=== PATIENT | male | born 1950 | race Caucasian/White ===

== ENCOUNTER → 2018-03-29 | Outpatient (CLI) | payer BC ==
[~2018-03-29] VITALS: Ht 170.2 cm; Wt 77.4 kg
[~2018-03-29] MED LIST: ACYCLOVIR 200200 MG PO; ATORVASTATIN CA40 MG PO; BISOPROLOL FUMAR5 M1 PO; DICLOFENAC SODI75 MG PO; DONNATAL TABL16.2 MG PO; HYDROCODON-ACE1 EAC7 PO
--- NOTE | ~2018-03-29 | HPC ---
[facility] [place] [address] PAIN MANAGEMENT CONSULTATION Name: CAIT AYERS [facility] #: [facility] [id number] Admission: 03/29/18 Attend Phys: Amos Pathak MD Discharge: Date of : 48 Report #: [id number] THIS REPORT FOR: //name// CC: Say Pathak DATE OF SERVICE: 03/29/2018 Followup visit for chronic low back pain with radiation along the right iliac crest. The patient returns to the pain clinic today with his . We had about a 25-30 minute consultation regarding his pain. He had an epidural injection at this clinic performed to the level of lumbar 4-5. The procedure provided substantial relief for nearly 1 month and then the pain returned to the baseline. Here today to discuss further options. He reports that when his pain was gone and it was, he was able to do most of his day-to-day activities including prolonged sitting, playing golf without too much discomfort. When the pain returned, it followed a typical pattern. Generally not bad in the morning, progressively worse later in the day or after playing golf and by evening time the pain is so severe that it limits his evening activities. He has trouble getting relief at that time of the day. Pain is almost exclusively in the back with some radiation around the iliac crest. It does not go into the leg and he does not describe any numbness, tingling or weakness. He has had no trials of stronger pain medication for this condition. He does have some hydrocodone remaining in his medicine cabinet at home from a previous surgery. We spent some time today reviewing once again his MRI from 12/29/2017. This presents multiple potential pain generators with degenerative disk disease throughout the lumbar spine and multiple bilateral facet degenerative changes severe in the mid and lower spine. There are persistent foraminal narrowings as well most severe on the right at L2-L3, L3-L4 and L4-L5 and left at L5-S1. Central canal narrowing is most prominent at L3-L4 and L4-L5. His response to the epidural with such a nice duration suggests that there may be some neural foraminal involvement. This could be affecting the nerve root and the long response of 30 days due to an anti-inflammatory response of the nerve roots involved. I did give him a fairly large volume of medications, so I do not think this was diagnostic necessarily for any one of the multiple levels documented on his MRI. 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 We discussed medications at some length, injections epidural versus facet, facet treatments including radiofrequency ablation, which I did not favor at this time, spinal cord stimulation, which is more helpful for those with classic radicular symptoms, intrathecal pump, which is certainly down the line and surgery. Surgery would be more complicated again because it is difficult to focus on his pain generator. I think there is a role for medication particularly since he does pretty well throughout the day. He might benefit from a mild opioid in addition to his nonsteroidal anti-inflammatory drug. We have many patients who have done this for a decade and a half avoiding surgery or other more aggressive treatments. We discussed the pros and cons of a mild opioid such as hydrocodone as an initial treatment. He has agreed to a small prescription as a trial. I told him I would share this information with Dr. Collins. He would like another epidural injection based upon his favorable response. This is one of the best and most long lasting of injection he has had. After further exam today, I elected to proceed with an injection at the lumbar 2-3 level. This may be more consistent with his radiating pattern of pain. PHYSICAL EXAMINATION: A pleasant 68-year-old moves easily from sitting to standing position without any difficulty. He has no alterations to his gait. His blood pressure 115/62, heart rate 51, respirations 14. His lumbar spine range of motion is actually normal in all planes. He has no increased pain with back extension to suggest the set mechanisms. The straight leg raising is negative. Sensation is normal. Deep tendon reflexes are normal. Strength is normal. He has some pain with lateral tilt that radiates along the right side of the low back across the iliac crest, but no further. There are no palpable abnormalities. It is nontender. IMPRESSION: Degenerative spine disease with possible radicular symptoms, L2-L3. RECOMMENDATIONS: 1. Repeat epidural injection a bit higher today, L2-L3 under fluoroscopic guidance. 2. A trial prescription for hydrocodone 5/325, to be taken in the evening when his pain is most severe. Side effects reviewed. An extensive discussion regarding the use of opioids. PROCEDURE: The patient was placed in the fluoroscopic suite, placed prone, skin prepped with ChloraPrep. Skin anesthetized over the L2-L3 interspace to the right of midline. A 20-gauge Tuohy epidural needle advanced first attempt to the epidural space with loss of resistance technique. There was no blood or CSF aspirated. 1 mL of Omnipaque was injected. Good spread of dye was observed in the epidural space, was followed by 3 mL of 0.5% lidocaine mixed with 80 mg of [facility] [address] [place] [address] PAIN MANAGEMENT CONSULTATION Name: ANDRIACAIT Palmer Room #: [facility].#: [id number] Admission: 03/29/18 Attend Phys: Amos Pathak MD Discharge: Date of : 48 Report #: [id number] triamcinolone. He tolerated the procedure well and was observed for 45 minutes and discharged. We will follow up in another month or two. Communication made today with Dr. Collins regarding treatment. By: [id number] Amos Pathak MD /nt
[2018-03-29 09:20] VITALS: BP 115/62
== END | disposition home or self-care (01) ==
LOC: PAIN 08:03
DX: M51.16 Intervertebral disc disorders with radiculopathy, lumbar region (principal); G89.29 Other chronic pain; Z79.891 Long term (current) use of opiate analgesic; Z88.8 Allergy status to other drugs, medicaments and biological substances; Z79.899 Other long term (current) drug therapy; Z98.890 Other specified postprocedural states

== ENCOUNTER → 2018-09-28 | Outpatient (CLI) | payer BC ==
[~2018-09-28] VITALS: Ht 170.2 cm; Wt 72.9 kg
[~2018-09-28] MED LIST changes: +ALTACE10 MG PO; +ASPIR 8181 MG PO; +HYOSCYAMINE0.375 M1 PO; +PROTONIX 20 MG20 M1 PO; +TRAMADOL 50 MG50 MG PO
--- NOTE | ~2018-09-28 | HPC ---
[facility] [place] [address] [address] PAIN MANAGEMENT CONSULTATION Name: CAIT AYERS Room #: REG CL Jose R.#: [id number] Admission: 09/28/18 ������������������ Attend Phys: Amos Pathak MD Discharge: ������������������ Date of : 48 Report #: [id number] THIS REPORT FOR: //name// CC: Say Dasilva MD DATE OF SERVICE: 09/28/2018 Followup visit for chronic low back pain, lumbar spondylosis and mild radiculopathy into the right hip. The patient returns to the pain clinic today for a 25-minute consultation regarding medication, followed by a lumbar epidural steroid injection. He presented to me today with information that shows that his renal function is declining. His glomerular filtration rate is now around 55. I believe this has happened gradually and over the course of time he has taken diclofenac 75 mg b.i.d. If this is truly related to his nonsteroidal anti-inflammatory drugs, discontinuing the drug may allow for improvement and there may be some reversibility. Prior to the diclofenac, he was on meloxicam and then nabumetone, so it has been one anti-inflammatory, another for a number of years dating back at least to 2016 in our records. His lumbar x-rays were reviewed today. He has retrolisthesis grade 1 of L2 on L3, L3 on L4 and grade 1 anterolisthesis of L4 on L5. There are multiple levels of facet degenerative changes as well as multiple levels of neural foraminal narrowing; encroachment of the nerve roots at each level is noted. There is some central canal stenosis as well noted at L3-L4. We reviewed the epidural injections that have been provided in our clinic. Dr. Jamison previously had been injecting him at L4-L5. Due to the diffuse nature of his pain and also the more significant degenerative changes, I elected to perform his last injection at lumbar 2, lumbar 3. He reported this provided substantially more pain relief. PHYSICAL EXAMINATION: He is a pleasant 68-year-old gentleman. Blood pressure 123/77, heart rate 58, respirations 16. He is fit and slender. BMI of 25.2. Moves easily from standing position, ambulates without too much difficulty. Lumbar range of motion is quite good in flexion, extension and rotation. He does have some increased back pain with back extension. Straight leg raising is negative other than some radiation into the hips. IMPRESSION: Chronic low back pain with spondylosis; retrolisthesis of L2 on L3, L3 on L4; anterolisthesis of L4 on L5 with spinal stenosis at L3-L4 and L4-L5, multilevel neural foraminal stenosis L2-L3 [place] [address] PAIN MANAGEMENT CONSULTATION Name: CAIT AYERS Room #: LILLIANA Hernandez#: [id number] Admission: 09/28/18 ������������������ Attend Phys: Amos Pathak MD Discharge: ������������������ Date of : 48 Report #: [id number] PROCEDURE: Epidural steroid injection, L2-L3 under fluoroscopic guidance. He was taken to fluoroscopic suite, placed prone, skin prepped with ChloraPrep. Skin anesthetized over the L2-L3 interspace. A 20-gauge Tuohy epidural needle advanced at first attempt into the epidural space with loss of resistance technique. No blood nor CSF was aspirated. A 1 mL of Omnipaque injected. Good spread of dye observed. This was followed by 3 mL of 0.5% lidocaine mixed with 80 mg triamcinolone. He tolerated the procedure well. Pain score was 0 in recovery room and he was discharged. Prior to discharge, we had a lengthy discussion about this, the importance of discontinuing the diclofenac altogether. To provide some breakthrough pain medication, I provided him with two trial prescriptions, one for [place] 5/325, #30 tablets 1 to be taken q. 8 hours as needed for severe pain and tramadol 50 mg, #30, 1 q. 8 hours as needed as well. I gave instructions on how these medications could be trialed independently to determine efficacy onset, duration of response and to monitor closely for side effects. We discussed constipation is most likely side effect. We did discuss the opioid crisis and the use of opioids and the treatment of intractable pain. Multiple questions were asked and answered. Phone call was placed to Dr. Collins to let him know that we had taken this approach. Followup visit planned in 1-2 months or by phone for further prescriptions. ��������������������������������������������� ���������������������������������������� By: ��������������������������������������������� [id number] Amos Pathak MD /nt
[2018-09-28 11:34] VITALS: BP 123/77
--- NOTE | 2018-09-28 11:36 | NUR ---
Pain Clinic Assessment: 1. History of Osteoarthritis: BACK History of Rheumatoid Arthritis: NO 2. Height: 5 ft. 7 in. 170.2 cm. Weight: 160.8 lb. oz. 72.938 kg. Patient's BMI: 25.2 3. Vital Signs: BP: 123/77 Pulse: 58 Resp: 16 Temp: 02 Sat: 98 ECG Mon: 4. Pain Intensity: 10 5. Fall Risk: Dizziness: N Needs help standing or walking: N Fallen in the last 3 months: N Fall risk comments: 6. Patient on Blood Thinner: None 7. History of Hypertension: Y 8. Opioid Therapy greater than 6 weeks: N Opiate Contract Signed: 9. Risk Assessment Tool Provided: 10. Functional Assessment Tool: 11. Recreational Drug Use: Never Drug Type: Tobacco Use: Never Smoker Tobacco Type: Amount or Packs/day: How Many Years: Alcohol Use: Yes Frequency: Quant:
== END | disposition home or self-care (01) ==
LOC: PAIN 07:09
DX: M47.26 Other spondylosis with radiculopathy, lumbar region (principal); M43.16 Spondylolisthesis, lumbar region; M48.061 Spinal stenosis, lumbar region without neurogenic claudication; G89.29 Other chronic pain; Z88.8 Allergy status to other drugs, medicaments and biological substances; Z79.82 Long term (current) use of aspirin; Z79.891 Long term (current) use of opiate analgesic; Z98.890 Other specified postprocedural states

== ENCOUNTER → 2018-10-28 | Outpatient (CLI) | payer BC ==
[~2018-10-28] VITALS: Ht 170.2 cm; Wt 69.9 kg
[2018-10-28 09:25] VITALS: BP 113/70
--- NOTE | 2018-10-28 09:50 | NUR ---
Pain Clinic Assessment: 1. History of Osteoarthritis: BACK History of Rheumatoid Arthritis: NO 2. Height: 5 ft. 7 in. 170.2 cm. Weight: 154.0 lb. oz. 69.854 kg. Patient's BMI: 24.1 3. Vital Signs: BP: 113/70 Pulse: 68 Resp: 14 Temp: 02 Sat: 97 ECG Mon: 4. Pain Intensity: 0 NOW 8 YESTERDAY 5. Fall Risk: Dizziness: N Needs help standing or walking: N Fallen in the last 3 months: N Fall risk comments: 6. Patient on Blood Thinner: None 7. History of Hypertension: Y 8. Opioid Therapy greater than 6 weeks: N Opiate Contract Signed: 9. Risk Assessment Tool Provided: 10. Functional Assessment Tool: 11. Recreational Drug Use: Never Drug Type: Tobacco Use: Never Smoker Tobacco Type: Amount or Packs/day: How Many Years: Alcohol Use: Yes Frequency: Quant:
--- NOTE | 2018-11-01 18:13 | HPC ---
[facility] [address] [address] [place] [address] PAIN MANAGEMENT CONSULTATION Name: CAIT AYERS [facility] #: [facility] [id number] Admission: 10/28/18 ������������������ Attend Phys: Amos Pathak MD Discharge: ������������������ Date of : 48 Report #: [id number] THIS REPORT FOR: //name// CC: Say Pathak DATE OF SERVICE: 10/28/2018 Followup visit for chronic low back pain, lumbar spondylosis with mild radiculopathy. Anterolisthesis of L4 on L5, retrolisthesis of L2 on L3 and L3 on L4. Spinal stenosis, multilevel. The patient returns to the pain clinic today. His epidural injections have provided relief, but only for short term. His pain, however, seems less radicular than it has been described in the past. Most of his pain radiates into the right flank and above the iliac crest, not so much into the hip. Pain is in the costovertebral angle, locally tender. He has remained fairly active, but walking seems to be his biggest problem. His pain is exacerbated by golf and seems to be worse late in the day after he has been up. PHYSICAL EXAMINATION: GENERAL: Today, he is pleasant, loquacious. VITAL SIGNS: Blood pressure is 113/70, heart rate 68, height 5 feet 7 inches, weight 154 with a BMI of 24.1. It should be noted that he has lost around 20 pounds over the course of the last year as a result of dietary changes. MUSCULOSKELETAL: He has pain across his low back, mostly on the right in the costovertebral angle. This is mildly exacerbated with flexion and extension. His gait is stable. Deep tendon reflexes are diminished bilaterally. Straight leg raising is negative other than the pain into the back. IMPRESSION: Chronic low back pain with spondylosis. RECOMMENDATION: Injection therapy's next step would dictate probably medial branch nerve block, followed by radiofrequency ablation. We discussed this today as one option for treatment. We have also discussed medication management. This may be a simpler approach. Because of his multiple levels of degenerative changes throughout the spine mentioned above, finding the appropriate medial branch nerves to provide denervation treatments would be a bit of a challenge. Focus on the right, but we will need to do multiple levels. I had a lengthy discussion with him today regarding chronic pain and its management. He is mildly depressed because he feels that he has done every [facility] [address] [place] [address] PAIN MANAGEMENT CONSULTATION Name: CAIT AYERS Room #: REG CLI [facility]#: [id number] Admission: 10/28/18 ������������������ Attend Phys: Amos Pathak MD Discharge: ������������������ Date of : 48 Report #: [id number] possible thing he can to remain healthy, yet he has ongoing back problems with age-related degeneration and he emotionally described his response to finding out about his elevated calcium score. He was counseled about accepting some of the changes that occur with ageing and to approach them with optimism. His father lived into his 90s as well as his mother, there is no reason why he cannot expect the same. He was here today for pain, so we discussed the use of hydrocodone once again and I provided him with an additional prescription for hydrocodone 5/325 to be taken up to 3 tablets daily on a p.r.n. basis. Maximum use should not exceed that. We talked about the use of pain medication as a tool and the controversy surrounding it. I have communicated with Dr. Collins about this. Followup visit is planned in 1-2 months to discuss further treatments. ��������������������������������������������� <ELECTRONICALLY SIGNED> ���������������������������������������� By: Amos Pathak MD ��������������������������������������������� 11/01/18 1813 [id number] Amos Pathak MD /nt
== END ==
LOC: PAIN 06:41
DX: M47.26 Other spondylosis with radiculopathy, lumbar region (principal); M43.16 Spondylolisthesis, lumbar region; M48.061 Spinal stenosis, lumbar region without neurogenic claudication

== ENCOUNTER → 2019-04-25 | Outpatient (CLI) | payer BC ==
[~2019-04-25] VITALS: Ht 170.2 cm; Wt 68.9 kg
[2019-04-25 11:14] VITALS: BP 127/65
--- NOTE | 2019-04-25 11:22 | NUR ---
Pain Clinic Assessment: 1. History of Osteoarthritis: BACK History of Rheumatoid Arthritis: NO 2. Height: 5 ft. 7 in. 170.2 cm. Weight: 152.0 lb. oz. 68.947 kg. Patient's BMI: 23.8 3. Vital Signs: BP: 127/65 Pulse: 51 Resp: 16 Temp: 02 Sat: 98 ECG Mon: 4. Pain Intensity: 0 NOW 5. Fall Risk: Dizziness: N Needs help standing or walking: N Fallen in the last 3 months: N Fall risk comments: 6. Patient on Blood Thinner: None 7. History of Hypertension: Y 8. Opioid Therapy greater than 6 weeks: Y Opiate Contract Signed: 10/28/18 9. Risk Assessment Tool Provided: Opioid Risk Tool 10. Functional Assessment Tool: 11. Recreational Drug Use: Never Drug Type: Tobacco Use: Never Smoker Tobacco Type: Amount or Packs/day: How Many Years: Alcohol Use: Yes Frequency: Quant:
--- NOTE | 2019-04-26 08:52 | HPC ---
[facility] [place] [address] PAIN MANAGEMENT CONSULTATION Name: CAIT AYERS Room #: REG [facility] David#: [id number] Admission: 04/25/19 Attend Phys: Mariel Salguero Discharge: Date of : 48 Report #: [id number] THIS REPORT FOR: //name// CC: Mariel Pathak MD DATE OF SERVICE: 04/25/2019 CHIEF COMPLAINT: Chronic low back pain, lumbar spondylosis and mild radiculopathy. HISTORY OF PRESENT ILLNESS: This is a very pleasant 69-year-old gentleman who returns to the pain clinic today for refill of his hydrocodone that he takes very sparingly to help control his low back pain. His last visit was in December and his hydrocodone medicine has been able to last this long taking one tablet on days that he is golfing. He feels that it enables him to play a round without significant pain. His pain is located in his lower back that radiates into his right hip, but not down his leg, rating it 0/10 today. It is worse as I discussed with golfing. He has been very active, doing [employer], Pilates and yoga. He feels that also can sometimes aggravate his pain if he overdoes his exercising. He denies any problems with daytime sleepiness or constipation due to his low amount of opioids that he does take. He is requesting refills today prior to leaving to go out of town for the holidays. ALLERGIES: CIPRO. CURRENT LIST OF MEDICATIONS: Hydrocodone 5/325 p.r.n., aspirin 81 mg daily, Protonix 40 mg daily, hyoscyamine 0.375 mg b.i.d., Altace 10 mg daily, acyclovir 200 mg 5 times a day. PQRS: 1. He has osteoarthritis in his lumbar spine. Denies any rheumatoid arthritis. 2. Height is 5 feet 7 inches, weight is 154, BMI is 24. 3. Vital signs 127/65, pulse is 51, respirations 14, and oxygen sat is 98. 4. Pain score is 0. 5. Denies dizziness, does not need help walking or standing, has not fallen in the last 3 months. 6. The patient is not on any blood thinners, but does take medicine for hypertension. 7. Opiate therapy is greater than 6 weeks; therefore, an opioid signed contract is on the chart. Risk assessment tool is low. Functional assessment is . 8. Recreational drug use, he denies. He is not a smoker and occasionally drinks alcohol. [address] [address] PAIN MANAGEMENT CONSULTATION Name: ANDRIACAIT Spencer Room #: REG [facility] [id number] Admission: 04/25/19 Attend Phys: Mariel Salguero Discharge: Date of : 48 Report #: [id number] According to the prescription monitoring system, the patient is filling appropriately for his medications. His last fill was in December. He does safeguard his medications and we discussed safeguarding them when he is at his house in [place] as well. PHYSICAL EXAMINATION: GENERAL: This is alert and orientated 69-year-old gentleman that appears his stated age, placing his current pain score 0/10 today. HEENT: Normocephalic, atraumatic. Extraocular eye muscles are intact. Mucous membranes are moist. MUSCULOSKELETAL: He moves from sitting to standing position without any difficulty. He ambulates with no difficulty as well. His range of motion of his lumbar spine did increase his pain slightly in his lumbar region that radiates into his right hip. This was worse with extension of his back. Lower extremity strength judged to be 5/5 with all major muscle groups. IMPRESSION: 1. Chronic low back pain with spondylosis. 2. Degenerative spine disease. 3. Management of opioid medications under terms of written agreement. PLAN: 1. We discussed treatment options with the patient today. The patient finds his hydrocodone very beneficial in enabling him to play golf and keep him very active. He does not use these daily taking 1-2 tablets as needed on days that he does golf. He will be traveling to [place] and be golfing every day for the next few weeks, so will be needing refills of his hydrocodone. Scripts set electronically today for hydrocodone 5/325, #90. We assume this will last the patient several months as the last prescription as his current morphine mEq is less than 5 a day according to the CDC guidelines. 2. The patient instructed to call for an appointment when he is needing a refill in the next few months. The patient verbalizes understanding. Patient is seen in collaboration today with Dr. Amos Pathak. <ELECTRONICALLY SIGNED> By: Mariel Salguero 04/26/19 0852 [id number] Mariel Salguero /royer
== END ==
LOC: PAIN 06:47
DX: M47.26 Other spondylosis with radiculopathy, lumbar region (principal); M51.16 Intervertebral disc disorders with radiculopathy, lumbar region; Z79.891 Long term (current) use of opiate analgesic

== ENCOUNTER → 2020-04-30 | Outpatient (CLI) | payer BC ==
--- NOTE | 2020-05-01 14:05 | HPC ---
[facility] [address] [address] PAIN MANAGEMENT CONSULTATION Name: CAIT AYERS [id number] Admission: 04/30/20 Attend Phys: Mariel Salguero Discharge: Date of : 48 Report #: [id number] THIS REPORT FOR: cc: Say Collins MD, John L. MD Hocker, Amanda CNS ~ CC: Mariel Pathak MD DATE OF SERVICE: 04/30/2020 CHIEF COMPLAINT: Chronic low back pain and lumbar spondylosis. HISTORY OF PRESENT ILLNESS: This is a pleasant 70-year-old gentleman who I am speaking with via the telephone for a Telemed appointment due to the COVID pandemic that he has consented for from 130-150. The patient reports that his pain is a 0 currently, but at times it can be elevated to 4-5, especially when he is playing golf. He reports it is located only across his lower lumbar area and does not radiate into his legs. He reports it is an aching, constant pain. He states that his hydrocodone is beneficial in helping when he plays golf and then he feels that the [facility] yoga is very beneficial in helping him stay limber which he believes helps his lower back pain. He states that his pain is worse, also later in the day. He is getting ready to go to [place] for the next several months and believes he needs a refill of his medications prior to leaving since he does play significant golf while out of town. He denies any constipation or daytime somnolence as a result of his medications. ALLERGIES: CIPRO. CURRENT MEDICATIONS: Hydrocodone 5/325, aspirin, Protonix, hyoscyamine, alteplase and acyclovir. PQRS: 1. He has a history of osteoarthritis of his lumbar spine. Denies rheumatoid arthritis. 2. Height is 5 feet 7 inches, weight is 154, BMI is 24. 3. Vital signs are deferred. His pain score is 0 currently. He denies dizziness, does not need help walking or standing, has not fallen in the last 3 months. The patient is not on any blood thinners, but he does take medicine for hypertension. Opioid therapy is greater than 6 weeks; therefore, an opioid signed contract is on the chart. Risk assessment is low. Functional assessment is . 4. Recreational drug use, he denies. He is not a smoker and does not drink alcohol. [facility] [address] [place] [address] PAIN MANAGEMENT CONSULTATION Name: CAIT AYERS Room #: REG CLI Anjana#: [id number] Admission: 04/30/20 Attend Phys: Mariel Salguero Discharge: Date of : 48 Report #: [id number] According to the prescription monitoring system, he is filling his medications appropriately. His last fill was last year. He takes these very sparingly, not on a daily basis. PHYSICAL EXAMINATION: Deferred due to a Telemed appointment. He reports no pain currently, but when he does have pain, it is across his lower lumbar region, occasionally radiating to his hips, but not radiating today. IMPRESSION: 1. Chronic low back pain with spondylosis. 2. Degenerative spine disease. 3. Management of opioid medications under terms of written agreement. PLAN: We discussed treatment options with the patient today. He does find the hydrocodone very beneficial, taking them very sparingly, averaging less than 1 tablet a day. He does take them when he plays golf, which he will be doing every day for the next few weeks. He does not take them every day while golfing, but does have it available. Scripts will be sent electronically for hydrocodone , #90. I did remind the patient to keep these safeguarded at all times whether he is here, traveling or in his [place] house. The patient verbalizes understanding. I explained to him that he will need to come for an appointment for his next fill for his medication. The patient is seen via Telemed appointment with Dr. Amos Pathak who has collaborated care. <ELECTRONICALLY SIGNED> By: Mariel Salgureo 05/01/20 1405 [id number] Mariel Salguero /royer
== END ==
LOC: TELEPC 12:10
PROVIDERS: ATTEND Clinical Nurse Specialist Adult Health
DX: M47.816 Spondylosis without myelopathy or radiculopathy, lumbar region (principal); G89.29 Other chronic pain; F11.20 Opioid dependence, uncomplicated; Z88.8 Allergy status to other drugs, medicaments and biological substances; Z79.899 Other long term (current) drug therapy